=== PATIENT | male | born 2000 | race African-American/Black ===

== ENCOUNTER 2021-09-11 19:17 | Emergency (ER) | payer OTHER ==
[2021-09-11] MEDS ORDERED: Ketamine 50 MG/ML (10ML VIAL) ONE (19:20)
[2021-09-11 19:53] LABS: #Basophils 0.1 thou/uL (0.0-0.2); #Eosinphils 0.2 thou/uL (0.0-0.7); #Lymphocytes 3.4 thou/uL (1.20-3.40); #Monocytes 0.8 thou/uL (0.11-0.59); #Neutrophils 4.9 thou/uL (1.40-6.50); %Basophils 1.3 % (0.0-1.0); %Eosinophils 2.3 % (0.0-10.0); %Lymphocytes 36.3 % (21.0-51.0); %Monocytes 8.1 % (0.0-10.0); Hemoglobin 15.4 g/dL (14.0-18.0); Mean Corpuscular HGB CONC 32.7 g/dL (32.0-36.0); Mean Corpuscular Hemoglobin 31.7 pg (27.0-31.0); Mean Corpuscular Volume 96.9 fL (78.0-98.0); Mean Platelet Volume 9.1 fL (7.4-10.4); Platelet Count 220 thou/uL (130-400); RBC Distribution Width 12.6 % (11.5-14.5); Red Blood Cell (RBC) Count 4.86 mill/uL (4.70-6.10); White Blood Cell (WBC) Count 9.4 thou/uL (4.8-10.8)
[2021-09-11] MEDS ORDERED: Lidocaine 1% w/Epinephrine 1:100K 20 ML VIAL ONE (19:59)
[2021-09-11 20:05] LABS: PTT 26.9 sec (22.9-36.1); Prothrombin Time 12.8 sec (12.0-14.7)
[2021-09-11 20:14] LABS: ALT (SGPT) 43 U/L (8-55); AST (SGOT) 53 U/L (5-34); Albumin 4.6 g/dL (3.5-5.0); Alcohol 305 mg/dL (Less than 10); Alkaline Phosphatase 75 U/L (40-110); Anion Gap 15 mmol/L (10-20); BUN (Urea Nitrogen) 11 mg/dL (8.9-20.6); Bilirubin, Total 0.3 mg/dL (0.2-1.2); Calc. Creatinine Clearance 0 mL/min (70-130); Calcium 9.6 mg/dL (7.8-10.44); Carbon Dioxide 24 mmol/L (22-29); Chloride 107 mmol/L (98-107); Globulin 3.4 g/dL (2.4-3.5); Glucose 93 mg/dL (70-105); Potassium 3.8 mmol/L (3.5-5.1); Sodium 142 mmol/L (136-145)
[2021-09-11] MEDS ORDERED: Piperacillin/Tazobactam 4.5 GM VIAL ONE (20:47)
== END 2021-09-12 01:30 | disposition home or self-care (01) ==
LOC: ERS 19:17
DX: S01.01XA Laceration without foreign body of scalp, initial encounter (principal); S01.511A Laceration without foreign body of lip, initial encounter; F10.129 Alcohol abuse with intoxication, unspecified; V03.99XA Pedestrian with other conveyance injured in collision with car, pick-up truck or van, unspecified whether traffic or nontraffic accident, initial encounter
CPT/HCPCS: 12013; 36415; 70450; 71045; 72125; 80053; 80307; 85025; 85610; 85730; 96374; G0390; J2543

== ENCOUNTER 2021-09-15 17:58 | Emergency (ER) | payer SELFPAY | END 2021-09-15 20:00 | disposition home or self-care (01) | LOC: ERS 17:58 | DX: M26.601 Right temporomandibular joint disorder, unspecified (principal); M79.601 Pain in right arm | CPT/HCPCS: 99283 ==